=== PATIENT | female | born 1970 | race African-American/Black ===

== ENCOUNTER 2019-05-04 01:00 | Emergency (ER) | payer OTHER ==
[~2019-05-04] VITALS: Ht 162.6 cm; Wt 90.7 kg
[~2019-05-04 01:00] MED LIST: NAPROXEN 500MG500 M1 PO; NOHOMEMEDICATIONS; PERCOCET 5-3251 EACH PO; ZPAK PO
[2019-05-04] MEDS ORDERED: MEDROLDOSEPACK PO (01:34)
[2019-05-04 02:57] VITALS: BP 190/110
== END 2019-05-04 02:40 | disposition home or self-care (01) ==
LOC: ER 01:00
DX: J04.0 Acute laryngitis (principal); R05 Cough; F17.210 Nicotine dependence, cigarettes, uncomplicated; F12.90 Cannabis use, unspecified, uncomplicated; I10 Essential (primary) hypertension; Z90.710 Acquired absence of both cervix and uterus

== ENCOUNTER 2021-06-20 19:49 | Emergency (ER) | payer OTHER ==
[~2021-06-20] VITALS: Ht 165.1 cm; Wt 91.2 kg
[~2021-06-20 19:49] MED LIST changes: +MEDROLDOSEPACK PO
[2021-06-20] MEDS ORDERED: MELATONIN5 M1 PO (20:03)
[2021-06-20] MEDS ORDERED: VALSARTAN-HCTZ1 EAC1 (20:04)
[2021-06-20] MEDS ORDERED: METRONIDAZOLE500 M4 (20:05)
[2021-06-20 20:49] LABS: HEMATOCRIT 42.6 % (37.0-47.0); HEMOGLOBIN 14.3 gm/dL (12.0-15.0); MCH 30.5 pg (26.0-34.0); MCHC 33.4 g/dL (28.0-37.0); MCV 91.1 fL (80.0-100.0); RBC 4.68 mil/uL (4.20-5.00); RDW 14.1 % (10.5-14.5); WBC 7.5 thou/uL (4.0-11.0)
[2021-06-20 20:50] LABS: URINE BILIRUBIN NEGATIVE (Negative); URINE BLOOD 1+ (Negative); URINE CLARITY CLEAR; URINE COLOR YELLOW; URINE GLUCOSE-RANDOM* NEGATIVE (Negative); URINE KETONES NEGATIVE (Negative); URINE LEUKOCYTES-REFLEX NEGATIVE (Negative); URINE NITRITE-REFLEX NEGATIVE (Negative); URINE PROTEIN (DIPSTICK) NEGATIVE (Negative); URINE SPECIFIC GRAVITY 1.025 (1.005-1.035); URINE UROBILINOGEN 0.2 E.U./dl (0.2-1.0)
[2021-06-20 20:59] LABS: SQUAMOUS >10 Many /LPF (0-3)
[2021-06-20 21:01] LABS: BACTERIA-REFLEX 1-9 Few /HPF (None Seen); CASTS None Seen /LPF (None Seen); CRYSTALS None Seen /LPF (None Seen); URINE WBC-REFLEX None Seen /HPF (0-5)
[2021-06-20 21:07] LABS: CREATININE 0.9 mg/dL (0.6-1.0); POTASSIUM 4.5 mmol/L (3.5-5.1)
[2021-06-20] MEDS ORDERED: VALSARTAN-HCTZ1 EAC1 PO (21:21)
[2021-06-20] MEDS ORDERED: CEPHALEXIN500 MG PO (21:41)
[2021-06-20 23:04] VITALS: BP 178/90
== END 2021-06-20 21:40 | disposition home or self-care (01) ==
LOC: ER 19:49
PROVIDERS: Nurse Practitioner Family
DX: I10 Essential (primary) hypertension (principal); N39.0 Urinary tract infection, site not specified; F19.90 Other psychoactive substance use, unspecified, uncomplicated; F17.210 Nicotine dependence, cigarettes, uncomplicated; Z90.710 Acquired absence of both cervix and uterus; Z79.899 Other long term (current) drug therapy